=== PATIENT | male | born 1995 | race Caucasian/White ===

== ENCOUNTER 2018-01-19 13:30 | Inpatient (IN) | payer MEDICAID ==
[~2018-01-19] VITALS: Ht 182.9 cm; Wt 69.0 kg
[2018-01-19 14:05] LABS: BASOPHILS % (AUTO) 0.8 % (0.0-2.0); EOSINOPHILS % (AUTO) 1.3 % (1.0-6.0); HEMATOCRIT 43.8 % (41-53); LYMPHOCYTES # (AUTO) 1.9 K/uL (1.0-4.8); LYMPHOCYTES % (AUTO) 16.8 % (22.0-44.0); MEAN CORPUSCULAR HEMOGLOBIN 30.2 pg (26.0-34.0); MEAN CORPUSCULAR HGB CONC 34.3 G/dL (31.0-37.0); MEAN CORPUSCULAR VOLUME 88 fL (80-100); MONOCYTES # (AUTO) 0.8 K/uL (0.1-1.0); MONOCYTES % (AUTO) 6.7 % (2.0-9.0); NEUTROPHILS # (AUTO) 8.5 K/uL (1.8-7.7); NEUTROPHILS % (AUTO) 74.4 % (40.0-70.0); PLATELET COUNT (AUTO) 239 K/uL (150-450); RED BLOOD CELL COUNT(AUTO) 4.97 MIL/uL (4.50-5.90)
[2018-01-19 14:09] LABS: ANION GAP 10 mmol/L (8-16); CARBON DIOXIDE 28 mmol/L (22-29); CHLORIDE 100 mmol/L (98-107); CREATININE 1.02 mg/dL (0.60-1.30); GLOMERULAR FILTR. RATE CALC > 60 mL/min (>60); GLUCOSE,RANDOM 94 mg/dL (70-110); POTASSIUM 3.3 mmol/L (3.5-5.1); SODIUM SERUM 138 mmol/L (136-145); UREA NITROGEN, BLOOD 8 mg/dL (7-18)
[2018-01-19 14:15] LABS: ALANINE AMINOTRANSFERASE 22 U/L (12-78); ALBUMIN 4.5 g/dL (3.4-5.0); ALKALINE PHOSPHATASE 92 U/L (46-116); ASPARTATE AMINOTRANSFERASE 16 U/L (15-37); BILIRUBIN,TOTAL 1.1 mg/dL (0.1-1.0); TOTAL PROTEIN, SERUM 7.7 g/dL (6.4-8.2)
[2018-01-19 16:27] LABS: AMPHET/METH SCREEN,URINE POSITIVE (NEGATIVE); BARBITURATE SCREEN, URINE NEGATIVE (NEGATIVE); BENZODIAZEPINES SCREEN,URINE NEGATIVE (NEGATIVE); CANNABINOID SCREEN,URINE NEGATIVE (NEGATIVE); COCAINE SCREEN,URINE NEGATIVE (NEGATIVE); METHADONE SCREEN, URINE NEGATIVE (NEGATIVE); OPIATE SCREEN,URINE NEGATIVE (NEGATIVE); PHENCYCLIDINE SCREEN,URINE NEGATIVE (NEGATIVE)
[2018-01-19] MEDS ORDERED: POTASSIUM CHLORIDE 20 MEQ ER TABLET PO ONE (17:15)
[2018-01-19] MEDS ORDERED: HALOPERIDOL 5 MG TABLET PO PRN (20:30)
[2018-01-19] MEDS ORDERED: ZOLPIDEM TARTRATE 10 MG TABLET PO PRN (20:30)
[2018-01-19] MEDS ORDERED: LORazepam 2 MG TABLET PO PRN (20:30)
[2018-01-19 21:20] VITALS: BP 114/52
[2018-01-19] MEDS ORDERED: PETROLATUM,WHITE 71 GM JELLY TP PRN (22:30)
[2018-01-19] MEDS ORDERED: ACETAMINOPHEN 325 MG TABLET PO PRN (22:30)
[2018-01-19] MEDS ORDERED: MAGNESIUM HYDROXIDE SUSPENSION 30 ML UDCUP PO PRN (22:30)
[2018-01-19] MEDS ORDERED: IBUPROFEN 400 MG TABLET PO PRN (22:30)
[2018-01-19] MEDS ORDERED: ALBUTEROL SULFATE HFA 90 MCG/PUFF 8 GM INHALER IH PRN (22:30)
[2018-01-19] MEDS ORDERED: ONDANSETRON HCL 4 MG TABLET PO PRN (22:30)
[2018-01-19] MEDS ORDERED: MAG HYDROX/AL HYDROX/SIMETH ES 30 ML SUSPENSION UDCUP PO PRN (22:30)
[2018-01-19] MEDS ORDERED: GuaiFENesin/D-METHORPHAN [SUGAR-FREE] 200-20MG/10 ML SYRUP UDCUP PO PRN (22:30)
[2018-01-19] MEDS ORDERED: NICOTINE 14 MG/24 HOUR PATCH TD PRN (22:30)
[2018-01-19] MEDS ORDERED: DOCUSATE SODIUM 100 MG CAPSULE PO PRN (22:30)
[2018-01-19] MEDS ORDERED: LOPERAMIDE HCL 2 MG CAPSULE PO PRN (22:30)
[2018-01-19] MEDS ORDERED: CloNIDine HCL 0.1 MG TABLET PO PRN (22:30)
[2018-01-20 07:06] LABS: CHOL/HDL RATIO 2.4 (4.2-7.3); THYROID STIMULATING HORMONE 0.8 uIU/mL (0.36-3.74)
[2018-01-20 09:53] VITALS: BP 118/58
[2018-01-20] MEDS: ESCITALOPRAM OXALATE 10 MG TABLET PO SCH (10:28)
[2018-01-20 16:00] VITALS: BP 135/76
[2018-01-21 08:00] VITALS: BP 136/77
[2018-01-21] MEDS: ESCITALOPRAM OXALATE 10 MG TABLET PO SCH (08:55)
[2018-01-21 16:00] VITALS: BP 131/76
[2018-01-22] MEDS: ESCITALOPRAM OXALATE 10 MG TABLET PO SCH (08:39)
[2018-01-22 09:00] VITALS: BP 126/76
[2018-01-22] MEDS ORDERED: ESCI10TA PO (10:53)
[2018-01-22] MEDS ORDERED: ESCI5TAB PO (11:00)
== END 2018-01-22 12:31 | disposition home or self-care (01) | DRG 751 ==
LOC: EMS 13:31 → 3EI 20:50 → 3EC 01-20 11:00
DX: F32.2 Major depressive disorder, single episode, severe without psychotic features (principal); D72.829 Elevated white blood cell count, unspecified; E87.6 Hypokalemia; F10.10 Alcohol abuse, uncomplicated; F15.10 Other stimulant abuse, uncomplicated; F41.9 Anxiety disorder, unspecified; I10 Essential (primary) hypertension; G47.00 Insomnia, unspecified; F19.10 Other psychoactive substance abuse, uncomplicated; F17.200 Nicotine dependence, unspecified, uncomplicated; Z71.41 Alcohol abuse counseling and surveillance of alcoholic; Z71.51 Drug abuse counseling and surveillance of drug abuser; Z71.6 Tobacco abuse counseling; Z79.899 Other long term (current) drug therapy; Z82.49 Family history of ischemic heart disease and other diseases of the circulatory system; Z91.5 Personal history of self-harm
CPT/HCPCS: 83036; 84132; 84443; 96372; G0480; J0690